=== PATIENT | female | born 1995 | race Caucasian/White ===

== ENCOUNTER 2018-03-06 10:55 | Outpatient (CLI) | payer MEDICAID ==
[2018-03-06 11:11] LABS: BASOPHILS % (AUTO) 0.5 %; EOSINOPHILS % (AUTO) 0.5 %; HGB - HEMOGLOBIN 13.6 g/dL (12.0-16.0); LYMPHOCYTES # (AUTO) 1.4 10^3/uL (1.5-3.5); LYMPHOCYTES % (AUTO) 22.7 %; MEAN CORPUSCULAR HEMOGLOBIN 32.4 pg (27.0-31.0); MEAN CORPUSCULAR HGB CONC 35.2 g/dL (32.0-36.0); MEAN CORPUSCULAR VOLUME 91.9 fL (81.0-99.0); MEAN PLATELET VOLUME 7.5 fL (7.9-10.8); MONOCYTES # (AUTO) 0.4 10^3/uL (0.0-1.0); MONOCYTES % (AUTO) 6.4 %; NEUTROPHILS # (AUTO) 4.3 10^3/uL (1.5-6.6); NEUTROPHILS % (AUTO) 69.9 %; PLT - PLATELET COUNT 248 10^3/uL (130-450); RED CELL DISTRIBUTION WIDTH 12.5 % (12.0-15.0); WHITE BLOOD COUNT 6.1 x10^3/uL (4.8-10.8)
[2018-03-06 11:40] LABS: ALBUMIN 4.9 g/dL (3.2-5.5); ALBUMIN/GLOBULIN RATIO 1.6 (1.0-2.2); ALKALINE PHOSPHATASE 45 IU/L (42-121); ALT ALANINE AMINOTRANSFERASE 17 IU/L (10-60); AST ASPARTATE AMINOTRANSFERASE 18 IU/L (10-42); BUN - BLOOD UREA NITROGEN 12 mg/dL (6-20); CALCIUM 9.3 mg/dL (8.5-10.3); CARBON DIOXIDE - CO2 26 mmol/L (21-32); CHLORIDE 104 mmol/L (101-111); CHOL/HDL RATIO 3.1 (<4.4); CHOLESTEROL 153 mg/dL; CREATININE 0.6 mg/dL (0.4-1.0); GFR - MDRD 125 (>89); GLUCOSE 95 mg/dL (70-100); HDL CHOLESTEROL 50 mg/dL; SODIUM 138 mmol/L (135-145)
[2018-03-06 11:53] LABS: HB2 TOTAL 14.7 g/dL; HEMOGLOBIN A1C 0.4 g/dL; HEMOGLOBIN A1C % 4.6 % (4.6-6.2)
[2018-03-06 11:59] LABS: LDL CHOLESTEROL,DIRECT 93 mg/dL; LDLD/HDL RATIO 1.9 (<4.4)
== END 2018-03-06 10:56 | disposition home or self-care (01) ==
LOC: LAB 10:55
PROVIDERS: ATTEND Nurse Practitioner Family
DX: F41.8 Other specified anxiety disorders (principal); Z13.6 Encounter for screening for cardiovascular disorders; R42 Dizziness and giddiness; Z84.89 Family history of other specified conditions
CPT/HCPCS: 36415; 80050; 80061; 83036; 83721